=== PATIENT | female | born 1975 | race Caucasian/White ===

== ENCOUNTER 2022-11-01 10:03 | Outpatient (CLI) | payer OTHER, SELFPAY ==
[2022-11-01 12:07] LABS: Albumin* 4.9 g/dL (3.3-5.0); Chloride* 107 mmol/L (96-114); Potassium* 4.4 mmol/L (3.6-5.1); Sodium* 139 mmol/L (135-149)
[2022-11-01 12:09] LABS: Aspartate Amino Transferase* 23 U/L (12-35); Bilirubin Total* 0.4 mg/dL (0.1-1.5); Carbon Dioxide* 25 mmol/L (20-32); Creatinine* 0.7 mg/dL (0.5-1.5); Estimated Glomerular Filt Rate 107 ml/min; Total Protein* 7.5 g/dL (6.0-8.3)
[2022-11-01 12:10] LABS: Alanine Aminotransferase* 19 U/L (4-35); Alkaline Phosphatase* 43 U/L (40-150); Blood Urea Nitrogen* 11 mg/dL (5-24); Calcium* 9.8 mg/dL (8.4-10.6); Glucose* 89 mg/dL (60-115)
== END 2022-11-01 10:04 | disposition home or self-care (01) ==
PROVIDERS: Visit Provider Obstetrics & Gynecology
DX: R53.83 Other fatigue (principal); R63.5 Abnormal weight gain; R68.89 Other general symptoms and signs; N89.8 Other specified noninflammatory disorders of vagina; Z79.890 Hormone replacement therapy
CPT/HCPCS: 80053; 84443

== ENCOUNTER 2023-01-22 08:36 | Outpatient (CLI) | payer OTHER, SELFPAY | END 2023-01-22 08:37 | disposition home or self-care (01) | LOC: OP CLINIC 08:36 | PROVIDERS: Visit Provider Surgery | DX: Z12.11 Encounter for screening for malignant neoplasm of colon (principal); Z83.71 Family history of colonic polyps | CPT/HCPCS: 45378; 99153; J2250; J3010 ==

== ENCOUNTER 2023-03-06 14:05 | Outpatient (CLI) | payer OTHER, SELFPAY | END 2023-03-06 14:06 | disposition home or self-care (01) | LOC: FRMREF 14:07 | PROVIDERS: Visit Provider Dermatology | DX: L40.9 Psoriasis, unspecified (principal); Z79.631 Long term (current) use of antimetabolite agent | CPT/HCPCS: 80053 ==

== ENCOUNTER 2023-03-07 11:21 | Outpatient (CLI) | payer OTHER, SELFPAY ==
--- NOTE | 2023-03-07 11:30 | CRLHL7_ITS ---
For Patients: As a result of the Cures Act, medical imaging exams and procedure reports are released immediately into your electronic medical record. You may view this report before your referring provider. If you have questions, please contact your health care provider. BILATERAL SCREENING MAMMOGRAM WITH COMPUTER-AIDED DETECTION AND TOMOSYNTHESIS TECHNIQUE: CC and MLO views were obtained. These mammographic images have been obtained using full-field digital technique. These mammographic images were interpreted with the benefit of computer-aided detection. Breast Tomosynthesis was used in this interpretation. COMPARISON FILM: Baseline. FINDINGS: The breasts are heterogeneously dense, which may obscure small masses IMPRESSION: There is no radiographic evidence for malignancy. ASSESSMENT: BI-RADS Category 1: Negative RECOMMENDATION: Routine screening mammogram in 1 year. A lay language report of this examination will be provided to the patient. ANYA ROA M.D. Diagnostic/Nuclear Medicine Radiologist [email or web address] ADDI:maite Transcribed: 1:09 p.mKenneth arora/Dictated by: Anya Roa MD @ 03/08/2023 8:22:00 AM (Electronically Signed)
== END 2023-03-07 11:22 | disposition home or self-care (01) ==
LOC: MAMMO 11:22
PROVIDERS: PCP Family Medicine; Visit Provider Family Medicine
DX: Z12.31 Encounter for screening mammogram for malignant neoplasm of breast (principal); R92.2 Inconclusive mammogram
CPT/HCPCS: 77063; 77067

== ENCOUNTER 2023-04-19 14:36 | Outpatient (CLI) | payer OTHER, SELFPAY | END 2023-04-19 14:37 | disposition home or self-care (01) | LOC: FRMREF 14:40 | PROVIDERS: PCP Family Medicine; Visit Provider Dermatology | DX: Z79.631 Long term (current) use of antimetabolite agent (principal) | CPT/HCPCS: 80053 ==

== ENCOUNTER 2023-07-31 09:10 | Outpatient (CLI) | payer OTHER, SELFPAY | END 2023-07-31 09:11 | disposition home or self-care (01) | LOC: NFLDREF 08-01 07:48 | PROVIDERS: PCP Family Medicine; Referring Provider Family Medicine; Visit Provider Dermatology | DX: L40.8 Other psoriasis (principal); Z79.631 Long term (current) use of antimetabolite agent | CPT/HCPCS: 80053 ==

== ENCOUNTER 2023-11-19 10:20 | Outpatient (CLI) | payer OTHER, SELFPAY | END 2023-11-19 10:21 | disposition home or self-care (01) | LOC: NFLDREF 11-22 10:34 | PROVIDERS: PCP Family Medicine; Referring Provider Family Medicine; Visit Provider Dermatology | DX: L40.9 Psoriasis, unspecified (principal); Z79.631 Long term (current) use of antimetabolite agent | CPT/HCPCS: 80053; J1100; J2795 ==

== ENCOUNTER 2024-02-11 09:47 | Outpatient (CLI) | payer OTHER, SELFPAY | END 2024-02-11 09:48 | disposition home or self-care (01) | LOC: NFLDREF 02-13 07:16 | PROVIDERS: PCP Family Medicine; Referring Provider Family Medicine; Visit Provider Dermatology | DX: L40.8 Other psoriasis (principal); Z79.631 Long term (current) use of antimetabolite agent | CPT/HCPCS: 80053 ==

== ENCOUNTER 2024-04-17 08:35 | Outpatient (CLI) | payer OTHER, SELFPAY ==
--- NOTE | 2024-04-17 08:45 | CRLHL7_ITS ---
For Patients: As a result of the Cures Act, medical imaging exams and procedure reports are released immediately into your electronic medical record. You may view this report before your referring provider. If you have questions, please contact your health care provider. DIGITAL DIAGNOSTIC BILATERAL MAMMMOGRAM USING TOMOSYNTHESIS AND COMPUTER-AIDED DETECTION LEFT BREAST ULTRASOUND CLINICAL HISTORY: LEFT breast lump. COMPARISON: 03/07/2023. TECHNIQUE: Digital LEFT mammogram in two projections with computer-aided detection. Tomosynthesis was used in this interpretation. Real-time ultrasound imaging of LEFT breast with imaging documentation. Scanning was performed by both the technologist and the radiologist. BREAST COMPOSITION: The breasts are heterogeneously dense, which may obscure small masses. FINDINGS: 3D CC/MLO bilateral mammogram images submitted. No suspicious mass or architectural distortion. No suspicious calcifications or adenopathy. Targeted LEFT breast ultrasound performed at 3 o`clock 2 cm from the nipple. In this location, there is a complicated cyst measuring 9 x 8 x 13 millimeters. No suspicious findings. IMPRESSION: Benign complicated cyst LEFT breast 3 o`clock 2 cm from the nipple measuring 9 x 8 x 13 millimeters. RECOMMENDATIONS: Routine annual bilateral screening mammography. Results and recommendations discussed with the patient. BI-RADS Category 2: Benign A lay language report of this examination will be provided to the patient. Dictated by Micah Burnham MD @ 04/17/2024 12:02:40 PM maite/Dictated by: Micah Burnham MD @ 04/17/2024 12:02:00 PM (Electronically Signed)
--- NOTE | 2024-04-17 09:15 | CRLHL7_ITS ---
For Patients: As a result of the Cures Act, medical imaging exams and procedure reports are released immediately into your electronic medical record. You may view this report before your referring provider. If you have questions, please contact your health care provider. PLEASE SEE DIGITAL DIAGNOSTIC BILATERAL MAMMOGRAM PERFORMED SAME DAY CRL:maite arora/Dictated by: Micah Burnham MD @ 04/17/2024 12:02:00 PM (Electronically Signed)
== END 2024-04-17 08:36 | disposition home or self-care (01) ==
LOC: MAMMO 08:36
PROVIDERS: PCP Family Medicine; Visit Provider Obstetrics & Gynecology
DX: N63.20 Unspecified lump in the left breast, unspecified quadrant (principal); N60.02 Solitary cyst of left breast
CPT/HCPCS: 76642; 77066; G0279

== ENCOUNTER 2024-06-27 13:46 | Outpatient (REF) | payer OTHER, SELFPAY ==
[2024-06-27 14:10] LABS: Basophils Absolute Auto 0.03 K/uL (0.00-0.30); Basophils Percent Auto 0.3 % (0.0-3.0); Eosinophils Absolute Auto 0.16 K/uL (0.00-0.50); Eosinophils Percent Auto 1.5 % (0.0-7.0); Hematocrit 39.9 % (33.0-51.0); Hemoglobin* 13.5 gm/dL (12.0-16.0); Lymphocytes Percent Auto 19.2 % (20-44); Mean Corpuscular HGB Conc 34 gm/dL (32-36); Mean Corpuscular Hemoglobin 31 pg (26-34); Mean Corpuscular Volume 91 fL (80-100); Monocytes Percent Auto 5.9 % (0.0-11.0); Neutrophils Percent Auto 73.1 % (42.0-72.0); Platelet Count* 220 K/uL (140-440); RDW Coefficient of Variation % 11.8 % (11.5-15.5); Red Blood Count 4.39 m/uL (4.00-5.20); White Blood Count* 10.46 K/uL (4.50-11.00)
[2024-06-27 14:18] LABS: Slide Review Reflex No
[2024-06-27 14:28] LABS: Albumin* 4.9 g/dL (3.3-5.0)
[2024-06-27 14:31] LABS: Alkaline Phosphatase* 42 U/L (40-150); Aspartate Amino Transferase* 24 U/L (12-35); Bilirubin Direct* 0.3 mg/dL (0.0-0.5); Bilirubin Total* 0.7 mg/dL (0.1-1.5); Total Protein* 7.4 g/dL (6.0-8.3)
[2024-06-27 14:32] LABS: Alanine Aminotransferase* 24 U/L (4-35)
[2024-06-27 15:04] LABS: Hepatitis B Surface Antigen* Negative (Negative)
[2024-06-27 15:21] LABS: Hepatitis C Virus Antibody* Negative (Negative)
[2024-06-27 15:34] LABS: Hepatitis B Surface Antibody* Negative (Negative)
== END 2024-06-27 13:47 | disposition home or self-care (01) ==
LOC: NPINS 13:46
PROVIDERS: PCP Family Medicine; Visit Provider Dermatology
DX: L40.0 Psoriasis vulgaris (principal)
CPT/HCPCS: 80076; 85025; 86480; 86706; 86803; 87340

== ENCOUNTER 2025-02-18 10:09 | Outpatient (CLI) | payer OTHER, SELFPAY ==
--- NOTE | 2025-02-18 10:00 | CRLHL7_ITS ---
For Patients: As a result of the Cures Act, medical imaging exams and procedure reports are released immediately into your electronic medical record. You may view this report before your referring provider. If you have questions, please contact your health care provider. Indication: Chronic sinusitis Technique: Performed without IV contrast Comparison: None available Findings: Frontal sinuses: Clear. Ethmoid sinuses: Clear. Maxillary sinuses: Clear. The maxillary sinus drainage pathways are patent on both sides. Sphenoid sinuses: Very minimal mucosal thickening within the left sphenoid sinus. Patency of the sphenoethmoidal recesses. Nasal Cavity: Paradoxical turn of the right middle turbinate. Nasal septum is midline. No polyps. Degenerative changes at the temporomandibular joints, [id number]. Impression: 1. Very minimal left sphenoid sinus disease. Remaining sinuses clear. 2. Paradoxical turn of the right middle turbinate. No nasal polyps. Please note that all CT scans at this facility use dose modulation, iterative reconstruction, and/or weight-based dosing when appropriate to reduce radiation dose to as low as reasonably achievable. Dictated by Micah Burnham MD @ 02/18/2025 11:43:30 AM (Electronically Signed)
== END 2025-02-18 10:10 | disposition home or self-care (01) ==
LOC: CT 10:09
PROVIDERS: PCP Family Medicine; Visit Provider Otolaryngology
DX: J32.9 Chronic sinusitis, unspecified (principal); J32.3 Chronic sphenoidal sinusitis
CPT/HCPCS: 70486

== ENCOUNTER 2025-04-27 13:41 | Outpatient (CLI) | payer OTHER, SELFPAY ==
--- NOTE | 2025-04-27 13:40 | CRLHL7_ITS ---
For Patients: As a result of the Century Cures Act, medical imaging exams and procedure reports are released immediately into your electronic medical record. You may view this report before your referring provider. If you have questions, please contact your health care provider. INDICATION: BILATERAL SCREENING MAMMOGRAM, ASYMPTOMATIC 49 Y/O FEMALE COMPARISON: 04/17/2024, 03/07/2023 TECHNIQUE: Digital mammogram in CC and MLO projections including computer-aided detection (CAD) and tomosynthesis. BREAST COMPOSITION: There are scattered areas of fibroglandular density. FINDINGS: No suspicious findings. ASSESSMENT: BI-RADS 1 Negative RECOMMENDATION: Annual screening mammogram. A lay language report of this examination will be provided to the patient. Dictated by: Micah Burnham MD @ 04/28/2025 11:30:23 (Electronically Signed)
== END 2025-04-27 13:42 | disposition home or self-care (01) ==
LOC: MAMMO 13:41
PROVIDERS: PCP Family Medicine; Visit Provider Family Medicine
DX: Z12.31 Encounter for screening mammogram for malignant neoplasm of breast (principal)
CPT/HCPCS: 77063; 77067

== ENCOUNTER 2025-05-01 11:55 | Day surgery (SDC) | payer OTHER, SELFPAY ==
[2025-05-01] VITALS (9 sets, daily range): BP systolic 104–123; BP diastolic 68–80; PULSE 60–76; RESP 12–18; TEMP 36.2–37; O2SAT 98–100; BMI 21.4
[2025-05-01] MEDS: LACTATED RINGERS 1000 ML 1,000 ML 100 ML IV (12:30)
[2025-05-01] MEDS: SODIUM CHLORIDE 0.9 % (FLUSH) 10 ML SYRINGE IVF (12:30)
[2025-05-01] MEDS: OXYMETAZOLINE (AFRIN) SOAK 1 EACH TOPICAL (12:32)
[2025-05-01] MEDS: BUPIVACAINE 0.5%/EPINEPHRINE 0.9 MG (30.9 ML) INJECTION (13:30)
[2025-05-01] MEDS: MUPIROCIN 1 GM PACKET 1 APPLIC TOPICAL (13:58)
[2025-05-01] MEDS: COCAINE HCL 4 % 4 ML SOLUTION NOSTRIL-B (13:58)
--- NOTE | 2025-05-01 14:12 | P.ENTPROC_ITS ---
Procedure Note Date of procedure: 05/01/25 Procedure: Preop diagnosis right middle turbinate laura bullosa, deviated septum, nasal obstruction, nasal headache, bilateral inferior turbinate hypertrophy Postop diagnosis same Procedure endoscopic partial resection right middle turbinate laura bullosa, nasal septoplasty, submucous partial resection inferior turbinates Under general endotracheal anesthesia patient was prepped and draped usual fashion nose decongested injected. A right hemitransfixion incision was made. Left anterior posterior tunnels were created. A vertical incision was made through the cartilage anterior to the bone and a right posterior tunnel created. Posterior deflected portions of septal bone resected in a single piece was trimmed returned to intraseptal space The hemitransfixion was closed with 2 4-0 chromic sutures. A stab incision was made in the anterior of the right inferior turbinate a tunnel created with a Van Wert dissector. The laura bone was outfractured a very conservative anterior submucous resection was performed. The Coblation was used for hemostasis. This was repeated on the left side in identical fashion. The remainder procedure was done with the available assistance of a 0 degree endoscope. The right middle turbinate laura was incised along its inferolateral aspect and a tunnel created with a Van Wert dissector. The turbinate was then crushed with the Elfego forceps. Silastic stents were secured with 3-0 nylon and Merocel packing placed in each side the nose. The patient procedure well was taken recovery in satisfactory condition. Blood loss was 0. Surgeon: Franky Appiah MD
--- NOTE | 2025-05-01 14:20 | P.ANES_ITS ---
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
--- NOTE | 2025-05-01 14:20 | W.ANESCHARGE ---
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
== END 2025-05-01 15:34 | disposition home or self-care (01) ==
LOC: OR 11:56
PROVIDERS: PCP Family Medicine; Visit Provider Otolaryngology
PROC: (CPT 30520; principal; 2025-05-01 13:30)
DX: J34.2 Deviated nasal septum (principal); J34.3 Hypertrophy of nasal turbinates; R51.9 Headache, unspecified; J34.89 Other specified disorders of nose and nasal sinuses
CPT/HCPCS: 30520; 30140; 31240; 00160; 81025; A9270; J0330; J1100; J2405; J2704; J3010; J7120

== ENCOUNTER 2025-08-05 09:40 | Outpatient (CLI) | payer OTHER, SELFPAY | END 2025-08-05 09:41 | disposition home or self-care (01) | LOC: NPINS 09:41 | PROVIDERS: PCP Family Medicine; Visit Provider Physician Assistant | DX: L40.0 Psoriasis vulgaris (principal); Z11.1 Encounter for screening for respiratory tuberculosis | CPT/HCPCS: 86480 ==

== ENCOUNTER 2025-09-16 10:42 | Outpatient (CLI) | payer OTHER, SELFPAY | END 2025-09-16 10:43 | disposition home or self-care (01) | PROVIDERS: PCP Family Medicine; Visit Provider Physician Assistant | DX: H93.8X2 Other specified disorders of left ear (principal) | CPT/HCPCS: 87070; 87102 ==